=== PATIENT | female | born 1970 | race Caucasian/White ===

== ENCOUNTER → 2016-09-06 | Outpatient (CLI) | payer BC ==
[2016-09-06 08:59] LABS: Basophils # (A) 0.1 k/uL (0-0.2); Basophils % (A) 1 %; CH 30.2; CHCM 33.2; Eosinophils # (A) 0.2 k/uL (0-0.7); Eosinophils % (A) 2 %; HCT 40.9 % (34.0-46.0); HDW 2.29; HGB 13.8 gm/dL (11.4-16.0); Luc # (Auto) 0.12; Luc % (Auto) 2; Lymphocytes # (A) 1.4 k/uL (1.0-4.8); Lymphocytes % (A) 19 %; MCH 30.8 pg (25.0-35.0); MCHC 33.7 g/dL (31.0-37.0); MCV 91.4 fL (80.0-100.0); Mean Platelet Volume 7.2; Monocytes # (A) 0.4 k/uL (0-1.0); Monocytes % (A) 5 %; Neutrophils # (A) 5.5 k/uL (1.3-7.7); Neutrophils % (A) 72 %; RBC 4.48 m/uL (3.80-5.40); RDW 12.1 % (11.5-15.5); WBC 7.6 k/uL (3.8-10.6)
[2016-09-06 09:32] LABS: ALT 45 U/L (9-52); AST 34 U/L (14-36); Alkaline Phosphatase 53 U/L (38-126); Anion Gap 13 mmol/L; Blood Urea Nitrogen 10 mg/dL (7-17); Calcium 9.7 mg/dL (8.4-10.2); Carbon Dioxide 24 mmol/L (22-30); Chloride 105 mmol/L (98-107); Cholesterol 183 mg/dL (<200); Glucose 97 mg/dL (74-99); HDL Cholesterol 63 mg/dL (40-60); Non-African American GFR(MDRD) >60 (>60 ml/min/1.73 sqM); Potassium 4.8 mmol/L (3.5-5.1); Sodium 142 mmol/L (137-145); Total Bilirubin 0.6 mg/dL (0.2-1.3); Total Protein 7.6 g/dL (6.3-8.2); Triglycerides 91 mg/dL (<150)
== END | disposition home or self-care (01) ==
LOC: LABWHC1 08:36
PROVIDERS: ATTEND Family Medicine
DX: Z00.00 Encounter for general adult medical examination without abnormal findings (principal)
CPT/HCPCS: 36415; 80053; 80061; 85025

== ENCOUNTER → 2017-10-19 | Outpatient (CLI) | payer OTHER ==
[2017-10-19 10:24] LABS: Basophils # (A) 0.1 k/uL (0-0.2); Basophils % (A) 1 %; Eosinophils # (A) 0.1 k/uL (0-0.7); Eosinophils % (A) 1 %; HCT 38.2 % (34.0-46.0); HGB 12.6 gm/dL (11.4-16.0); Lymphocytes # (A) 1.7 k/uL (1.0-4.8); Lymphocytes % (A) 26 %; MCHC 32.9 g/dL (31.0-37.0); MCV 91.4 fL (80.0-100.0); Mean Platelet Volume 7.4; Monocytes # (A) 0.3 k/uL (0-1.0); Monocytes % (A) 4 %; Neutrophils # (A) 4.2 k/uL (1.3-7.7); Neutrophils % (A) 66 %; Platelet Count 290 k/uL (150-450); RBC 4.18 m/uL (3.80-5.40); RDW 12.3 % (11.5-15.5); WBC 6.4 k/uL (3.8-10.6)
[2017-10-19 11:25] LABS: ALT 34 U/L (9-52); AST 23 U/L (14-36); Alkaline Phosphatase 52 U/L (38-126); Anion Gap 13 mmol/L; Blood Urea Nitrogen 15 mg/dL (7-17); Calcium 9.3 mg/dL (8.4-10.2); Carbon Dioxide 26 mmol/L (22-30); Chloride 103 mmol/L (98-107); Cholesterol 146 mg/dL (<200); Glucose 95 mg/dL (74-99); HDL Cholesterol 56 mg/dL (40-60); LDL Cholesterol,Calculated 77 mg/dL (0-99); Potassium 4.2 mmol/L (3.5-5.1); Sodium 142 mmol/L (137-145); Total Bilirubin 0.3 mg/dL (0.2-1.3); Total Protein 6.7 g/dL (6.3-8.2); Triglycerides 63 mg/dL (<150)
--- NOTE | 2017-10-21 09:12 | MM ---
Reason for exam: screening (asymptomatic). Last mammogram was performed 1 year and 6 months ago. History: Patient history of other cancer. Family history of breast cancer in maternal aunt, breast cancer in paternal aunt at age 47, and breast cancer in maternal cousin. Physical Findings: A clinical breast exam by your physician is recommended on an annual basis and results should be correlated with mammographic findings. MG Screening Mammo w CAD Bilateral CC and MLO view(s) were taken. Prior study comparison: April 07, 2016, bilateral MG screening mammo w CAD. October 09, 2014, bilateral MG diagnostic mammo w CAD RICHELLE. There are scattered fibroglandular densities. No significant changes when compared with prior studies. ASSESSMENT: Negative, BI-RAD 1 RECOMMENDATION: Routine screening mammogram of both breasts in 1 year.
== END | disposition home or self-care (01) ==
LOC: RADMAMWWP 09:30
PROVIDERS: ATTEND Family Medicine
DX: Z12.31 Encounter for screening mammogram for malignant neoplasm of breast (principal); Z00.00 Encounter for general adult medical examination without abnormal findings
CPT/HCPCS: 36415; 77067; 80053; 80061; 82306; 84443; 85025

== ENCOUNTER → 2020-06-06 | Outpatient (CLI) | payer SELFPAY ==
--- NOTE | 2020-06-07 11:25 | MR ---
EXAMINATION TYPE: MR brain wo con DATE OF EXAM: 06/06/2020 COMPARISON: NONE at this institution. HISTORY: Head injury in spring 2019, dizziness and giddiness, history of lupus TECHNIQUE: Multiplanar, multisequence imaging of the brain and brainstem is performed without IV cont rast. Trauma protocol. FINDINGS: Diffusion weighted images demonstrate no evidence of a recent infarct or other diffusion abnormality. There is no worrisome extra-axial fluid collection. The ventricular system and cisternal spaces are normal in size and appearance. The brain volume is age appropriate. T2 Star weighted images show no suspicious intraparenchymal blood product. There are scattered areas of T2 hyperintensity including a lobulated 2.0 x 1.9 cm lesion in the posterior right frontal lobe at level of arreaga radiata axis im age 19. Lesions are nonspecific in appearance and distribution. There is another reference 1.2 x 1.1 cm lesion in the left temporal periventricular region axial image 12 noted. Roughly additional 5-10 s maller scattered lesions are present. Midline structures demonstrate normal morphology. The craniocervical junction appears within normal limits. Normal vascular flow voids are present. The visualized sinuses are clear and the globes are i ntact. No suspicious fluid signal bilateral mastoid air cells. 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
== END | disposition home or self-care (01) ==
LOC: RADMRIMAIN 16:18
PROVIDERS: ATTEND Family Medicine
DX: R90.82 White matter disease, unspecified (principal)
CPT/HCPCS: 70551

== ENCOUNTER → 2023-05-27 | Outpatient (CLI) | payer BC ==
--- NOTE | 2023-05-28 07:54 | CA ---
Transthoracic Echo Report Name: Dariela Montaño Age: 52 Gender: F : 1970 Exam Date: 05/27/2023 15:14 Exam Location: [place] [facility] Ht (in): 63 Wt (lb): 220 Ordering Physician: Chaparro Mccarty MD Attending/Referring Phys: Diandra Olea [facility] Diffusion Furnace Operator Niyah Rich RDCS Procedure CPT: Indications: R94.31 ABNORMAL EKG Cardiac Hx: Technical Quality: Fair Contrast 1: Total Dose (mL): Contrast 2: Total Dose (mL): MEASUREMENTS (Male / Female) Normal Values 2D ECHO LV Diastolic Diameter PLAX 3.6 cm 4.2 - 5.9 / 3.9 - 5.3 cm LV Systolic Diameter PLAX 2.4 cm IVS Diastolic Thickness 1.4 cm 0.6 - 1.0 / 0.6 - 0.9 cm LVPW Diastolic Thickness 1.3 cm 0.6 - 1.0 / 0.6 - 0.9 cm LV Relative Wall Thickness 0.8 RV Internal Dim ED PLAX 3.2 cm LA Volume 65.3 cm??? 18 - 58 / 22 - 52 cm??? LA Volume Index 30.3 cm???/m??? 16 - 28 cm???/m??? M-MODE Aortic Root Diameter MM 3.0 cm LA Systolic Diameter MM 4.7 cm LA Ao Ratio MM 1.6 AV Cusp Separation MM 2.0 cm DOPPLER AV Peak Velocity 136.9 cm/s AV Peak Gradient 7.5 mmHg AV Mean Velocity 94.8 cm/s AV Mean Gradient 4.0 mmHg AV Velocity Time Integral 31.4 cm LVOT Peak Velocity 87.7 cm/s LVOT Peak Gradient 3.1 mmHg LVOT Velocity Time Integral 22.2 cm MV Area PHT 3.1 cm??? MR Peak Velocity 143.3 cm/s MR Peak Gradient 8.2 mmHg Mitral E Point Velocity 73.8 cm/s Mitral A Point Velocity 69.4 cm/s Mitral E to A Ratio 1.1 MV Deceleration Time 242.6 ms MV E' Velocity 8.0 cm/s Mitral E to MV E' Ratio 9.2 TR Peak Velocity 227.1 cm/s TR Peak Gradient 20.6 mmHg Right Ventricular Systolic Press 25.6 mmHg FINDINGS Left Ventricle Moderately increased left ventricular wall thickness. Left ventricular cavity size normal. Normal left ventricular systolic function with no obvious regional wall motion abnormalities. Left ventricular ejection fraction is estimated at 55-60%. Right Ventricle Normal right ventricular size and function. Right ventricular systolic pressure within normal limits. Right Atrium Normal right atrial size. Left Atrium Mildly increased left atrial volume. Mitral Valve Structurally normal mitral valve. Mild mitral regurgitation. Aortic Valve Trileaflet aortic valve. No aortic valve stenosis or regurgitation. Tricuspid Valve Structurally normal tricuspid valve. Mild tricuspid regurgitation. Pulmonic Valve Trace pulmonic regurgitation. Pericardium No pericardial effusion. Aorta Normal size aortic root and proximal ascending aorta. CONCLUSIONS Normal LV size and systolic function. Mild mitral and tricuspid regurgitation. No significant pulmonary hypertension. No pericardial effusion Previewed by: Dr. Alicia Olivera MD (Electronically Signed) Final Date: 28 May 2023 07:53
== END | disposition home or self-care (01) ==
LOC: RADECHMAIN 15:03
PROVIDERS: ATTEND Family Medicine
DX: I08.1 Rheumatic disorders of both mitral and tricuspid valves (principal); R94.31 Abnormal electrocardiogram [ECG] [EKG]
CPT/HCPCS: 93306

== ENCOUNTER 2023-06-24 07:05 | Day surgery (SDC) | payer BC ==
[2023-06-23 08:34] VITALS: BMI 37.8
[2023-06-24] MEDS: LACTATED RINGERS 1,000 ML IV SCH ×2 (07:50→07:51)
[2023-06-24] MEDS ORDERED: LIDOCAINE 1% (10MG/ML) FOR IV START INTRADERMA ONE (07:51)
[2023-06-24] MEDS ORDERED: MIDAZOLAM 2 MG/2 ML VIAL ONE (07:52)
[2023-06-24] MEDS ORDERED: LIDOCAINE 1% INJ 10MG/ML (20 ML MDV) ONE (07:52)
[2023-06-24] MEDS ORDERED: PROPOFOL 10 MG/ML 20 ML VIAL IV ONE (07:52)
[2023-06-24 08:04] VITALS: TEMP 96.9
--- NOTE | 2023-06-24 08:15 | P.PCN ---
Date of Procedure: 06/24/23 Procedure(s) Performed: Brief history: Patient is a pleasant 50-year-old white female scheduled for an elective upper endoscopy as well as colonoscopy as a part of evaluation of intermittent episodes of nausea vomiting and GERD as well as screening for colon cancer Procedure performed: Esophagogastroduodenoscopy with biopsy Colonoscopy with biopsy and snare polypectomy Preoperative diagnosis: Epigastric pain/intermittent nausea vomiting/GERD Screening for colon cancer Anesthesia: MAC Procedure: After informed consent was obtained from the patient was brought into the endoscopy unit and IV sedation was administered by anesthesia under continuous monitoring. Initially upper endoscopy was done. The Olympus GF 160 video endoscope was inserted inserted into the mouth and esophagus intubated without any difficulty and was gradually advanced into the stomach and duodenum and carefully examined. The bulb and second part of the duodenum appeared normal. The scope was then withdrawn into the stomach adequately insufflated with air and upon careful examination the antrum had mild gastritis and biopsies were done from this area. Mucosa of the body, cardia and fundus appeared normal. The scope was then withdrawn into the esophagus. Small hiatal hernia noted. The GE junction was located at 40 cm to the incisors. It appeared regular with 2 superficial erosions consistent with LA grade B reflux esophagitis. There was a 5 mm GE junction polyp that was biopsied.. Rest of the esophagus appeared normal. Patient tolerated the procedure well. At this time the patient continued to remain sedation. Initial digital rectal examination was normal. Olympus CF 160 video colonoscope was then inserted into the rectum and gradually advanced to the cecum without any difficulty. Careful examination was performed as the scope was gradually being withdrawn. The prep was excellent. The cecum, ascending colon, appeared normal. In the transverse colon there was a 4 mm polyp that was removed by cold biopsy. Rest of the transverse colon, descending colon, normal. In the sigmoid colon there was a 6 minute a polyp that was removed by cold snare polypectomy. Rest of the sigmoid colon and rectum appeared normal. Retroflexion was performed in the rectum and no lesions were noted. Patient tolerated the procedure well. Impression: 1. Upper Endoscopy revealed mild antral gastritis, small hiatal hernia, 5 mm GE junction polyp and LA grade B reflux esophagitis 2. Colonoscopy revealed a 4 mm transverse colon polyp status post cold biopsy and 6 mm sigmoid polyp status post cold snare polypectomy Recommendations: Findings of this examination were discussed with the patient as well as her family. She was advised to follow with the biopsy results. Continue with Pepcid 20 mg twice daily and follow antrum reflux measures. If the biopsy of the colon polyps revealed adenoma, recommend repeat colonoscopy in 5 years.
[2023-06-24 08:55] VITALS: BP 127/74; PULSE 74; RESP 16
== END 2023-06-24 09:06 | disposition home or self-care (01) ==
LOC: ORWHC2ENDO 07:05
PROVIDERS: ATTEND Internal Medicine Gastroenterology
DX: Z12.11 Encounter for screening for malignant neoplasm of colon (principal); K29.80 Duodenitis without bleeding; K31.9 Disease of stomach and duodenum, unspecified; D12.3 Benign neoplasm of transverse colon; K29.50 Unspecified chronic gastritis without bleeding; K21.00 Gastro-esophageal reflux disease with esophagitis, without bleeding; K22.82 Esophagogastric junction polyp; K44.9 Diaphragmatic hernia without obstruction or gangrene; Z87.19 Personal history of other diseases of the digestive system
CPT/HCPCS: 88305; 45380; 45385; 43239; J2250; J2001; J2704

== ENCOUNTER → 2023-07-08 | Outpatient (CLI) | payer BC ==
[~2023-07-08] MED LIST: REGADENOSON 0.4 MG/5 ML SYRINGE IV ONE
--- NOTE | 2023-07-08 12:36 | CA ---
Lexiscan Nuclear Stress Test Report Name: Dariela Montaño Exam Date: 07/08/2023 09:30 Exam Location: [place] [facility] Ht (in): 66 Wt (lb): 222 BSA: 2.09 Ordering Phys: Chaparro Mccarty MD Referring Phys: KENTON,, Technologist: LYNNE,, Age: 52 Gender: F : 1970 Procedure CPT: Indications: R94.31 Abn EKG ICD-10 Codes: Patient History: Chest pain, shortness of breath and palpitations Medications: Meds past 24 hrs: Pretest Chest Pain: STRESS TEST Lexiscan Protocol Exercise Duration (min:sec): 02:[address] Depressions (mm): Angina Score: Guido Score: Resting HR (bpm): 57 Peak HR (bpm): 111 Resting BP (mmHg): 107 / 68 Peak BP (mmHg): 161 / 72 MPHR: 168 Target HR: 143 % MPHR: 66 METS: 1.0 Total Dose: Peak Dose: Atropine: Double Product: 87936 BP Response: Stress Termination: Infusion complete Stress Symptoms: Nausea Stress Summary: ECG ANALYSIS Resting ECG: Stress ECG: CONCLUSIONS At baseline EKG showed normal sinus rhythm, normal axis, no significant ST or T wave abnormalities. Patient recieved IV infusion of Lexiscan 0.4mg and at peak infusion EKG showed no significant change from baseline. Conclusions: 1. Normal EKG response to Lexiscan infusion 2. Nuclear imaging to be reported separately. Dr. Skyler Radford DO (Electronically Signed) Final Date: 08 July 2023 12:35
== END | disposition home or self-care (01) ==
LOC: RADNMMAIN 08:05
PROVIDERS: ATTEND Family Medicine
DX: R07.1 Chest pain on breathing (principal); R94.31 Abnormal electrocardiogram [ECG] [EKG]; R06.02 Shortness of breath
CPT/HCPCS: 93017; 78452; A9500; J2785

== ENCOUNTER 2023-08-04 07:43 | Emergency (ER) | payer BC ==
[2023-08-04] MEDS ORDERED: METOCLOPRAMIDE 5 MG/ML 2 ML VIAL IVP STA (08:03)
[2023-08-04] MEDS ORDERED: diphenhydrAMINE 50 MG/ML 1 ML VIAL IVP STA (08:03)
[2023-08-04] MEDS ORDERED: SODIUM CHLORIDE 0.9% 2,000 ML IV STA (08:03)
[2023-08-04] MEDS ORDERED: KETOROLAC 15 MG/ML 1 ML VIAL IVP STA (08:04)
[2023-08-04 08:15] VITALS: TEMP 98
--- NOTE | 2023-08-04 08:43 | ED ---
Recheck HPI - General Chief Complaint: Recheck/Abnormal Lab/Rx Stated Complaint: NV Time Seen by Provider: 08/04/23 08:00 Source: patient, RN notes reviewed Mode of arrival: EMS Limitations: no limitations - History of Present Illness Initial Comments: Is a 53-year-old female presents emergency department complaint of nausea vomiting chest discomfort. Patient states she has been vomiting throughout the night. She states she has pain in her chest, epigastric region. Patient denies any shortness of breath she does admit to marijuana use. Patient denies any localized abdominal discomfort other than her upper abdomen. Patient states she had no prior surgeries she had a recent stress test showing some abnormalities. Patient denies any dysuria hematuria - Related Data Home Medications Medication Instructions Recorded Confirmed FLUoxetine HCL [PROzac] 40 mg PO QAM 06/23/23 06/24/23 Famotidine 40 mg PO QAM 06/23/23 06/24/23 Meloxicam [Mobic] 15 mg PO QAM 06/23/23 06/24/23 Vit No.179/Iron/Folic 1 each PO QAM 06/23/23 06/24/23 [ Tablet] tiZANidine [Zanaflex] 4 mg PO HS 06/23/23 06/24/23 Previous Rx's Medication Instructions Recorded Omeprazole [PriLOSEC] 40 mg PO DAILY #14 cap 08/04/23 Ondansetron Odt [Zofran Odt] 4 mg PO Q8HR PRN #10 tab 08/04/23 Allergies Allergy/AdvReac Type Severity Reaction Status Date / Time No Known Allergies Allergy Verified 08/04/23 07:55 Review of Systems ROS Statement: Those systems with pertinent positive or pertinent negative responses have been documented in the HPI. ROS Other: All systems not noted in ROS Statement are negative. Past Medical History Past Medical History: No Reported History Additional Past Medical History / Comment(s): Recent frequent vomiting, currently not as much. Lupus. History of Any Multi-Drug Resistant Organisms: None Reported Past Surgical History: Section, Orthopedic Surgery Additional Past Surgical History / Comment(s): Left knee surgery, laproscopy. Past Anesthesia/Blood Transfusion Reactions: No Reported Reaction Past Psychological History: Anxiety, Depression Smoking Status: Former smoker Past Alcohol Use History: None Reported Past Drug Use History: Marijuana - Past Family History Mother Family Medical History: Blood Disorder, Deep Vein Thrombosis (DVT) Additional Family Medical History / Comment(s): Factor 5. Sister(s) Family Medical History: Cancer, Deep Vein Thrombosis (DVT) Additional Family Medical History / Comment(s): 2 sister's had DVT's, 1 sister had throat cancer. Brother(s) Family Medical History: Deep Vein Thrombosis (DVT) Daughter(s) Family Medical History: Deep Vein Thrombosis (DVT), Pulmonary Embolus Additional Family Medical History / Comment(s): DVT and PE from control pill. General Exam Limitations: no limitations General appearance: alert, in no apparent distress Head exam: Present: atraumatic, normocephalic, normal inspection Eye exam: Present: normal appearance, PERRL, EOMI. Absent: scleral icterus, conjunctival injection, periorbital swelling ENT exam: Present: normal exam, normal oropharynx, mucous membranes moist Neck exam: Present: normal inspection, full ROM. Absent: tenderness, meningismus, lymphadenopathy Respiratory exam: Present: normal lung sounds bilaterally. Absent: respiratory distress, wheezes, rales, rhonchi, stridor Cardiovascular Exam: Present: regular rate, normal rhythm, normal heart sounds. Absent: systolic murmur, diastolic murmur, rubs, gallop, clicks GI/Abdominal exam: Present: soft, normal bowel sounds. Absent: distended, tenderness, guarding, rebound, rigid Neurological exam: Present: alert, reflexes normal. Absent: motor sensory deficit Skin exam: Present: warm, dry, intact, normal color. Absent: rash Course Vital Signs 08/04/23 08/04/23 07:52 11:32 Temperature 98 F Pulse Rate 68 86 Respiratory 18 20 Rate Blood Pressure 147/80 140/80 O2 Sat by Pulse 98 98 Oximetry Medical Decision Making - Medical Decision Making Was pt. sent in by a medical professional or institution (, PA, [facility], urgent care, hospital, or retirement...) When possible be specific @ -No Did you speak to anyone other than the patient for history (EMS, parent, family, police, friend...)? What history was obtained from this source @ -No Did you review nursing and triage notes (agree or disagree)? Why? @ -I reviewed and agree with nursing and triage notes Were old charts reviewed (outside hosp., previous admission, EMS record, old EKG, old radiological studies, urgent care reports/EKG's, retirement records)? Report findings @ -Reviewed recent stress test, upper and lower GI Differential Diagnosis (chest pain, altered mental status, abdominal pain women, abdominal pain men, vaginal bleeding, weakness, fever, dyspnea, syncope, headache, dizziness, GI bleed, back pain, seizure, CVA, palpatations, mental health, musculoskeletal)? @ -Differential Abdominal Pain Women: Appendicitis, Cholecystitis, diverticulosis, ischemic bowel, pancreatitis, hepatitis, UTI, gastroenteritis, AAA, incarcerated hernia, bowel obstruction, constipation, inflammatory bowel, hepatitis, peptic ulcer disease, splenic infarction, perforated viscus, vulvitis, ovarian torsion, PID, kidney stone, placenta abruption, this is not meant to be an all-inclusive list EKG interpreted by me (3pts min.). @ -[As above X-rays interpreted by me (1pt min.). @ -Chest x-ray 2 view no acute cardiopulmonary process CT interpreted by me (1pt min.). @ -None done U/S interpreted by me (1pt. min.). @ -None done What testing was considered but not performed or refused? (CT, X-rays, U/S, labs)? Why? @ -None What meds were considered but not given or refused? Why? @ -None Did you discuss the management of the patient with other professionals (professionals i.e. , PA, [facility], lab, RT, psych nurse, child protective services social worker, husbandry person, teacher, port patrol officer, returned case inspector)? Give summary @ -No Was smoking cessation discussed for >3mins.? @ -No Was critical care preformed (if so, how long)? @ -No Were there social determinants of health that impacted care today? How? (Homelessness, low income, unemployed, alcoholism, drug addiction, transportation, low edu. Level, literacy, decrease access to med. care, nursing home, rehab)? @ -No Was there de-escalation of care discussed even if they declined (Discuss DNR or withdrawal of care, Hospice)? DNR status @ -No What co-morbidities impacted this encounter? (DM, HTN, Smoking, COPD, CAD, Cancer, CVA, ARF, Chemo, Hep., AIDS, mental health diagnosis, sleep apnea, morbid obesity)? @ -Marijuana use Was patient admitted / discharged? Hospital course, mention meds given and route, prescriptions, significant lab abnormalities, going to OR and other pertinent info. @ -Discharged patient felt reasonably better IV fluids and antiemetics patient had recent GI evaluation she was placed on Pepcid. Patient continues to use marijuana. She has no chest pain currently laboratory studies reveal mild lactic acidosis related to her vomiting she feels comfortable with discharge and close follow-up. Undiagnosed new problem with uncertain prognosis? @ -No Drug Therapy requiring intensive monitoring for toxicity (Heparin, Nitro, Insulin, Cardizem)? @ -No Were any procedures done? @ -No Diagnosis/symptom? @ -Nausea vomiting, dehydration Acute, or Chronic, or Acute on Chronic? @ -[Acute Uncomplicated (without systemic symptoms) or Complicated (systemic symptoms)? @ -Complicated Side effects of treatment? @ -No Exacerbation, Progression, or Severe Exacerbation? @ -No Poses a threat to life or bodily function? How? (Chest pain, USA, IA, pneumonia, PE, COPD, DKA, ARF, appy, cholecystitis, CVA, Diverticulitis, Homicidal, Suicidal, threat to staff... and all critical care pts) @ -No - Lab Data Result diagrams: 08/04/23 08:27 08/04/23 08:27 Lab Results 08/04/23 08/04/23 08/04/23 Range/Units 08:27 08:27 08:27 WBC 11.0 H (3.8-10.6) k/uL RBC 4.81 (3.80-5.40) m/uL Hgb 14.7 (11.4-16.0) gm/dL Hct 43.8 (34.0-46.0) % MCV 91.0 (80.0-100.0) fL MCH 30.5 (25.0-35.0) pg MCHC 33.5 (31.0-37.0) g/dL RDW 12.4 (11.5-15.5) % Plt Count 308 (150-450) k/uL MPV 7.8 Neutrophils % 80 % Lymphocytes % 14 % Monocytes % 4 % Eosinophils % 1 % Basophils % 0 % Neutrophils # 8.8 H (1.3-7.7) k/uL Lymphocytes # 1.6 (1.0-4.8) k/uL Monocytes # 0.4 (0-1.0) k/uL Eosinophils # 0.1 (0-0.7) k/uL Basophils # 0.1 (0-0.2) k/uL Sodium 139 (137-145) mmol/L Potassium 3.7 (3.5-5.1) mmol/L Chloride 108 H (98-107) mmol/L Carbon Dioxide 19 L (22-30) mmol/L Anion Gap 12 mmol/L BUN 13 (7-17) mg/dL Creatinine 0.65 (0.52-1.04) mg/dL Est GFR (CKD-EPI)AfAm >90 (>60 ml/min/1.73 sqM) Est GFR (CKD-EPI)NonAf >90 (>60 ml/min/1.73 sqM) Glucose 167 H (74-99) mg/dL Lactic Ac Sepsis Rflx Plasma Lactic Acid Martin (0.7-2.0) mmol/L Calcium 10.1 (8.4-10.2) mg/dL Total Bilirubin 0.6 (0.2-1.3) mg/dL AST 36 (14-36) U/L ALT 33 (4-34) U/L Alkaline Phosphatase 85 (38-126) U/L Troponin I (0.000-0.034) ng/mL Total Protein 7.7 (6.3-8.2) g/dL Albumin 4.8 (3.5-5.0) g/dL Lipase 140 (23-300) U/L Urine Color Light Yellow Urine Appearance Cloudy H (Clear) Urine pH 8.5 H (5.0-8.0) Ur Specific [place] 1.014 (1.001-1.035) Urine Protein Trace H (Negative) Urine Glucose (UA) Negative (Negative) Urine Ketones Negative (Negative) Urine Blood Negative (Negative) Urine Nitrite Negative (Negative) Urine Bilirubin Negative (Negative) Urine Urobilinogen <2.0 (<2.0) mg/dL Ur Leukocyte Esterase Negative (Negative) Urine RBC 1 (0-5) /hpf Urine WBC 1 (0-5) /hpf Ur Squamous Epith Cells <1 (0-4) /hpf Amorphous Sediment Rare H (None) /hpf Urine Mucus Rare H (None) /hpf 08/04/23 08/04/23 08/04/23 Range/Units 08:27 08:27 09:15 WBC (3.8-10.6) k/uL RBC (3.80-5.40) m/uL Hgb (11.4-16.0) gm/dL Hct (34.0-46.0) % MCV (80.0-100.0) fL MCH (25.0-35.0) pg MCHC (31.0-37.0) g/dL RDW (11.5-15.5) % Plt Count (150-450) k/uL MPV Neutrophils % % Lymphocytes % % Monocytes % % Eosinophils % % Basophils % % Neutrophils # (1.3-7.7) k/uL Lymphocytes # (1.0-4.8) k/uL Monocytes # (0-1.0) k/uL Eosinophils # (0-0.7) k/uL Basophils # (0-0.2) k/uL Sodium (137-145) mmol/L Potassium (3.5-5.1) mmol/L Chloride (98-107) mmol/L Carbon Dioxide (22-30) mmol/L Anion Gap mmol/L BUN (7-17) mg/dL Creatinine (0.52-1.04) mg/dL Est GFR (CKD-EPI)AfAm (>60 ml/min/1.73 sqM) Est GFR (CKD-EPI)NonAf (>60 ml/min/1.73 sqM) Glucose (74-99) mg/dL Lactic Ac Sepsis Rflx Y Plasma Lactic Acid Martin 4.6 H* (0.7-2.0) mmol/L Calcium (8.4-10.2) mg/dL Total Bilirubin (0.2-1.3) mg/dL AST (14-36) U/L ALT (4-34) U/L Alkaline Phosphatase (38-126) U/L Troponin I <0.012 (0.000-0.034) ng/mL Total Protein (6.3-8.2) g/dL Albumin (3.5-5.0) g/dL Lipase (23-300) U/L Urine Color Urine Appearance (Clear) Urine pH (5.0-8.0) Ur Specific [place] (1.001-1.035) Urine Protein (Negative) Urine Glucose (UA) (Negative) Urine Ketones (Negative) Urine Blood (Negative) Urine Nitrite (Negative) Urine Bilirubin (Negative) Urine Urobilinogen (<2.0) mg/dL Ur Leukocyte Esterase (Negative) Urine RBC (0-5) /hpf Urine WBC (0-5) /hpf Ur Squamous Epith Cells (0-4) /hpf Amorphous Sediment (None) /hpf Urine Mucus (None) /hpf Disposition Clinical Impression: Nausea & vomiting, Dehydration Disposition: HOME SELF-CARE Condition: Stable Instructions (If sedation given, give patient instructions): Acute Nausea and Vomiting (ED) Additional Instructions: Please return to the Emergency Department if symptoms worsen or any other concerns. Prescriptions: Omeprazole [PriLOSEC] 40 mg PO DAILY #14 cap Ondansetron Odt [Zofran Odt] 4 mg PO Q8HR PRN #10 tab PRN Reason: Nausea Is patient prescribed a controlled substance at d/c from ED?: No Referrals: Chaparro Mccarty MD [Primary Care Provider] - 1-2 days Time of Disposition: 11:01
[2023-08-04 08:53] LABS: ALT 33 U/L (4-34); AST 36 U/L (14-36); African American GFR (CKD) >90 (>60 ml/min/1.73 sqM); Albumin 4.8 g/dL (3.5-5.0); Alkaline Phosphatase 85 U/L (38-126); Anion Gap 12 mmol/L; Blood Urea Nitrogen 13 mg/dL (7-17); Calcium 10.1 mg/dL (8.4-10.2); Carbon Dioxide 19 mmol/L (22-30); Chloride 108 mmol/L (98-107); Glucose 167 mg/dL (74-99); Lipase 140 U/L (23-300); Non-African American GFR(CKD) >90 (>60 ml/min/1.73 sqM); Potassium 3.7 mmol/L (3.5-5.1); Sodium 139 mmol/L (137-145); Total Bilirubin 0.6 mg/dL (0.2-1.3); Total Protein 7.7 g/dL (6.3-8.2)
[2023-08-04 08:54] LABS: Basophils # (A) 0.1 k/uL (0-0.2); Basophils % (A) 0 %; Eosinophils # (A) 0.1 k/uL (0-0.7); Eosinophils % (A) 1 %; HCT 43.8 % (34.0-46.0); HGB 14.7 gm/dL (11.4-16.0); Lymphocytes # (A) 1.6 k/uL (1.0-4.8); Lymphocytes % (A) 14 %; MCH 30.5 pg (25.0-35.0); MCHC 33.5 g/dL (31.0-37.0); Mean Platelet Volume 7.8; Monocytes # (A) 0.4 k/uL (0-1.0); Monocytes % (A) 4 %; Neutrophils # (A) 8.8 k/uL (1.3-7.7); Neutrophils % (A) 80 %; Platelet Count 308 k/uL (150-450); RBC 4.81 m/uL (3.80-5.40); RDW 12.4 % (11.5-15.5)
--- NOTE | 2023-08-04 08:54 | XR ---
EXAMINATION TYPE: XR chest 2V DATE OF EXAM: 08/04/2023 COMPARISON: None INDICATION: Pain and nausea and vomiting chest discomfort TECHNIQUE: Frontal and lateral views of the chest are obtained. FINDINGS: The heart size is normal. The pulmonary vasculature is normal. The lungs are clear. IMPRESSION: 1. No acute pulmonary process.
[2023-08-04] MEDS ORDERED: PANTOPRAZOLE 40 MG/10 ML VIAL IVP STA (09:01)
[2023-08-04] MEDS ORDERED: droPERidol 5 MG/2 ML VIAL IVP ONE ×2 (09:02→11:15)
[2023-08-04 10:50] LABS: Amorphous Sediment,Urine Rare /hpf; Appearance,Urine Cloudy (Clear); Bilirubin,Urine Negative (Negative); Blood,Urine Negative (Negative); Color,Urine Light Yellow; Glucose,Urine (UA) Negative (Negative); Ketones,Urine Negative (Negative); Leukocyte Esterase,Urine Negative (Negative); Mucus,Urine Rare /hpf; Nitrite,Urine Negative (Negative); PH, Urine 8.5 (5.0-8.0); Protein,Urine Trace (Negative); RBC,Urine 1 /hpf (0-5); Specific Gravity,Urine 1.014 (1.001-1.035); Squamous Epithelial Cell,Urine <1 /hpf (0-4); Urobilinogen,Urine <2.0 mg/dL (<2.0); WBC,Urine 1 /hpf (0-5)
[2023-08-04] MEDS ORDERED: FAMOTIDINE 20 MG/2 ML VIAL IV STA (11:15)
[2023-08-04 11:40] VITALS: BP 140/80; PULSE 86; RESP 20
== END 2023-08-04 11:36 | disposition home or self-care (01) ==
LOC: EC 07:43
DX: R11.2 Nausea with vomiting, unspecified (principal); E86.0 Dehydration; E87.20 Acidosis, unspecified; R00.1 Bradycardia, unspecified; F32.A Depression, unspecified; F41.9 Anxiety disorder, unspecified; F12.90 Cannabis use, unspecified, uncomplicated; Z79.899 Other long term (current) drug therapy; Z87.891 Personal history of nicotine dependence
CPT/HCPCS: 36415; 93005; 80053; 83605; 83690; 84484; 85025; 81001; 71046; 99285; 96374; 96375 ×5; 96376; 96361 ×2; J1200; J2765; J3490; J1885; C9113; J1790

== ENCOUNTER 2023-08-06 11:42 | Inpatient (IN) | payer BC ==
[2023-08-06] MEDS ORDERED: LORazepam 2 MG/ML INJ IV STA (12:10)
[2023-08-06] MEDS ORDERED: SODIUM CHLORIDE 0.9% 2,000 ML IV ONE (12:10)
[2023-08-06] MEDS ORDERED: droPERidol 5 MG/2 ML VIAL IVP ONE (12:10)
[2023-08-06] MEDS ORDERED: SODIUM CHLORIDE 0.9% 1,000 ML IV SCH (12:15)
[2023-08-06 12:41] LABS: Basophils % (A) 0 %; Eosinophils # (A) 0.1 k/uL (0-0.7); Eosinophils % (A) 1 %; HCT 42.8 % (34.0-46.0); HGB 14.6 gm/dL (11.4-16.0); Lymphocytes # (A) 1.9 k/uL (1.0-4.8); Lymphocytes % (A) 15 %; MCH 30.2 pg (25.0-35.0); MCHC 34.1 g/dL (31.0-37.0); MCV 88.6 fL (80.0-100.0); Monocytes # (A) 0.6 k/uL (0-1.0); Monocytes % (A) 5 %; Neutrophils # (A) 10.2 k/uL (1.3-7.7); Neutrophils % (A) 79 %; Platelet Count 308 k/uL (150-450); RBC 4.83 m/uL (3.80-5.40); RDW 12.6 % (11.5-15.5); WBC 12.9 k/uL (3.8-10.6)
[2023-08-06 12:44] LABS: INR 0.9 (<1.2); Partial Thromboplastin Time 22.5 sec (22.0-30.0); Prothrombin Time 10.4 sec (10.0-12.5)
--- NOTE | 2023-08-06 12:44 | XR ---
EXAMINATION TYPE: XR chest 2V DATE OF EXAM: 08/06/2023 12:39 PM CLINICAL INDICATION:Female, 52 years old with history of Chest Pain; [facility] COMPARISON: Chest radiographs from 08/04/2023 TECHNIQUE: XR chest 2V Frontal and lateral views of the chest. FINDINGS: Lungs/Pleura: There is no evidence of pleural effusion, focal consolidation, or pneumothorax. Pulmonary vascularity: Unremarkable. Heart/mediastinum: Cardiomediastinal silhouette is unremarkable. Musculoskeletal: No acute osseous pathology. IMPRESSION: No acute cardiopulmonary disease/process.
[2023-08-06] MEDS ORDERED: MORPHINE SULFATE 4 MG/ML SYRINGE IVP STA (12:47)
[2023-08-06] MEDS ORDERED: METOCLOPRAMIDE 5 MG/ML 2 ML VIAL IVP STA (12:47)
[2023-08-06 12:50] LABS: ALT 48 U/L (4-34); African American GFR (CKD) >90 (>60 ml/min/1.73 sqM); Albumin 5.1 g/dL (3.5-5.0); Anion Gap 13 mmol/L; Blood Urea Nitrogen 12 mg/dL (7-17); Calcium 10.3 mg/dL (8.4-10.2); Carbon Dioxide 22 mmol/L (22-30); Chloride 101 mmol/L (98-107); Glucose 112 mg/dL (74-99); Non-African American GFR(CKD) >90 (>60 ml/min/1.73 sqM); Sodium 136 mmol/L (137-145); Total Bilirubin 1.1 mg/dL (0.2-1.3)
[2023-08-06 12:59] LABS: NT-Pro-B-Type Natriuretic Pept 1500 pg/mL
[2023-08-06] MEDS: ASPIRIN 81 MG PO STA (13:08)
[2023-08-06 13:13] LABS: AST 57 U/L (14-36); Alkaline Phosphatase 70 U/L (38-126); Magnesium 1.5 mg/dL (1.6-2.3); Potassium 4.3 mmol/L (3.5-5.1); Total Protein 8.5 g/dL (6.3-8.2)
--- NOTE | 2023-08-06 13:23 | ED ---
Chest Pain HPI - General Chief Complaint: Chest Pain Stated Complaint: Abn EKG, sent by Cardio Time Seen by Provider: 08/06/23 11:52 Source: patient, RN notes reviewed Mode of arrival: ambulatory Limitations: no limitations - History of Present Illness Initial Comments: 52-year-old female presents emergency department with chief complaint of abdominal, chest pain. Patient states she was seen here few days ago for similar complaints. Patient states that she continues to have nausea and vomiting. 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 She states this is not different than what she has been exhibiting. She denies any fevers or chills no back pain no shortness of breath. - Related Data Home Medications Medication Instructions Recorded Confirmed FLUoxetine HCL [PROzac] 40 mg PO DAILY 06/23/23 08/06/23 Famotidine 40 mg PO DAILY 06/23/23 08/06/23 Meloxicam [Mobic] 15 mg PO DAILY 06/23/23 08/06/23 Vit No.179/Iron/Folic 1 tab PO DAILY 06/23/23 08/06/23 [ Tablet] tiZANidine [Zanaflex] 4 mg PO HS PRN 06/23/23 08/06/23 ALPRAZolam [Xanax] 0.5 mg PO DAILY PRN 08/06/23 08/06/23 Allergies Allergy/AdvReac Type Severity Reaction Status Date / Time No Known Allergies Allergy Verified 08/06/23 13:51 Review of Systems ROS Statement: Those systems with pertinent positive or pertinent negative responses have been documented in the HPI. ROS Other: All systems not noted in ROS Statement are negative. EKG Findings - EKG Comments: EKG Findings:: EKG performed at 12: 02 sinus rhythm with short ND rate of 61 ND 117 QRS 82 QT/QTc 427/431 - EKG Results: EKG: interpreted by DARELL Past Medical History Past Medical History: No Reported History Additional Past Medical History / Comment(s): Recent frequent vomiting, currently not as much. Lupus. History of Any Multi-Drug Resistant Organisms: None Reported Past Surgical History: Section, Orthopedic Surgery Additional Past Surgical History / Comment(s): Left knee surgery, laproscopy. Past Anesthesia/Blood Transfusion Reactions: No Reported Reaction Past Psychological History: Anxiety, Depression Smoking Status: Former smoker Past Alcohol Use History: None Reported Past Drug Use History: Marijuana - Past Family History Mother Family Medical History: Blood Disorder, Deep Vein Thrombosis (DVT) Additional Family Medical History / Comment(s): Factor 5. Sister(s) Family Medical History: Cancer, Deep Vein Thrombosis (DVT) Additional Family Medical History / Comment(s): 2 sister's had DVT's, 1 sister had throat cancer. Brother(s) Family Medical History: Deep Vein Thrombosis (DVT) Daughter(s) Family Medical History: Deep Vein Thrombosis (DVT), Pulmonary Embolus Additional Family Medical History / Comment(s): DVT and PE from control pill. General Exam Limitations: no limitations General appearance: alert, in no apparent distress Head exam: Present: atraumatic, normocephalic, normal inspection Eye exam: Present: normal appearance, PERRL, EOMI. Absent: scleral icterus, conjunctival injection, periorbital swelling ENT exam: Present: normal exam, normal oropharynx, mucous membranes moist Neck exam: Present: normal inspection, full ROM. Absent: tenderness, meningismus, lymphadenopathy Respiratory exam: Present: normal lung sounds bilaterally, chest wall tenderness. Absent: respiratory distress, wheezes, rales, rhonchi, stridor Cardiovascular Exam: Present: regular rate, normal rhythm, normal heart sounds. Absent: systolic murmur, diastolic murmur, rubs, gallop, clicks GI/Abdominal exam: Present: soft, tenderness, normal bowel sounds. Absent: distended, guarding, rebound, rigid Course Vital Signs 08/06/23 08/06/23 11:52 15:00 Temperature 98.2 F Pulse Rate 72 64 Respiratory 16 16 Rate Blood Pressure 155/84 161/85 O2 Sat by Pulse 100 95 Oximetry Chest Pain MDM - MDM Was pt. sent in by a medical professional or institution (, PA, ENVIRONMENTAL TECHNOLOGY PROFESSOR, urgent care, hospital, or assisted...) When possible be specific @ -[Allergy Did you speak to anyone other than the patient for history (EMS, parent, family, police, friend...)? What history was obtained from this source @ -No Did you review nursing and triage notes (agree or disagree)? Why? @ -I reviewed and agree with nursing and triage notes Were old charts reviewed (outside hosp., previous admission, EMS record, old EKG, old radiological studies, urgent care reports/EKG's, assisted records)? Report findings @ -[Recent laboratory studies, EKG, chest x-ray and stress test Differential Diagnosis (chest pain, altered mental status, abdominal pain women, abdominal pain men, vaginal bleeding, weakness, fever, dyspnea, syncope, headache, dizziness, GI bleed, back pain, seizure, CVA, palpatations, mental health, musculoskeletal)? @ -Differential Chest Pain: Stable Angina, Unstable Angina, STEMI, NSTEMI Aortic Dissection, Pneumothorax, Musculoskeletal, Esophageal Spasm GERD, Cholecystitis, Pancreatitis, Zoster, this is not meant to be an all-inclusive list. EKG interpreted by me (3pts min.). @ -As above X-rays interpreted by me (1pt min.). @ -Chest x-ray shows no acute cardiopulmonary process CT interpreted by me (1pt min.). @ -None done U/S interpreted by me (1pt. min.). @ -None done What testing was considered but not performed or refused? (CT, X-rays, U/S, labs)? Why? @ -None What meds were considered but not given or refused? Why? @ -None Did you discuss the management of the patient with other professionals (professionals i.e. , PA, ENVIRONMENTAL TECHNOLOGY PROFESSOR, lab, RT, psych nurse, social media content specialist, bus girl, teacher, environmental health officer, case management coordinator)? Give summary @ -[facility] physician for admission secondary to abnormal stress test and sent in by cardiology Was smoking cessation discussed for >3mins.? @ -No Was critical care preformed (if so, how long)? @ -No Were there social determinants of health that impacted care today? How? (Homelessness, low income, unemployed, alcoholism, drug addiction, transportation, low edu. Level, literacy, decrease access to med. care, alf, rehab)? @ -No Was there de-escalation of care discussed even if they declined (Discuss DNR or withdrawal of care, Hospice)? DNR status @ -No What co-morbidities impacted this encounter? (DM, HTN, Smoking, COPD, CAD, Cancer, CVA, ARF, Chemo, Hep., AIDS, mental health diagnosis, sleep apnea, morbid obesity)? @ -None Was patient admitted / discharged? Hospital course, mention meds given and route, prescriptions, significant lab abnormalities, going to OR and other pertinent info. @ -[For cardiac rule out, heart cath as she has had abnormal stress test. Undiagnosed new problem with uncertain prognosis? @ -No Drug Therapy requiring intensive monitoring for toxicity (Heparin, Nitro, Insulin, Cardizem)? @ -No Were any procedures done? @ -No Diagnosis/symptom? @ -[Chest pain Acute, or Chronic, or Acute on Chronic? @ -Acute Uncomplicated (without systemic symptoms) or Complicated (systemic symptoms)? @ -[Uncomplicated Side effects of treatment? @ -[No Exacerbation, Progression, or Severe Exacerbation? @ -No Poses a threat to life or bodily function? How? (Chest pain, [place], [place], pneumonia, PE, COPD, DKA, ARF, appy, cholecystitis, CVA, Diverticulitis, Homicidal, Suicidal, threat to staff... and all critical care pts) @ -[Yes possible ACS Disposition Clinical Impression: Nausea & vomiting, Chest pain Disposition: ADMITTED IP TO THIS HOSP Condition: Fair Time of Disposition: 13:17
[2023-08-06] MEDS ORDERED: NITROGLYCERIN SL TABS 0.4 MG TAB SUBLINGUAL PRN ×2 (13:38→23:45)
--- NOTE | 2023-08-06 14:43 | P.HPIM ---
History of Present Illness H&P Date: 08/06/23 History of Presenting Illness: Patient is a very pleasant 52-year-old female with a past medical history of lupus, gastroparesis with cyclic vomiting, anxiety, depression, and daily cannabinoid use. She presented to the emergency department with a chief complaint of intractable abdominal and chest pain accompanied by persistent nausea and vomiting x 3 days. 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 Patient denied having any fevers, chills, dizziness, lightheadedness, palpitations, shortness of breath, cough or congestion, or experiencing any changes with her urinary function or bowel movements. She does admit to daily marijuana use and states that is not the cause of her cyclic vomiting because she has used it every day for years. She underwent full evaluation in the emergency department. Vital signs upon arrival show blood pressure 155/84, heart rate 72, respiratory rate 16, temp 98.2 F, SpO2 100% on room air. Patient was medicated with morphine, Reglan, Ativan, and droperidol and given an IV fluid bolus of 2 L 0.9% normal saline. Her labs were completed. CBC revealing leukocytosis with WBC count of 12.9. Coagulation profile normal findings. BMP unremarkable. Blood glucose was 112. Calcium elevated at 10.3 and magnesium is low at 1.5. Liver profile showing elevated AST of 57 and ALT of 48. Troponin was negative at less than 0.012. EKG was completed showing normal sinus rhythm at 61 bpm. Chest x-ray was negative for acute cardiopulmonary process. Patient was admitted under our services with consultation to cardiology. Review of systems: Pertinent positives and negatives as discussed in HPI, a complete review of s ystems was performed and all other systems are negative. Physical exam: Vital signs reviewed and stable. General: Nontoxic, no distress and appears stated age. Derm: Skin warm and dry, normal coloration for ethnicity. Head: Atraumatic, normocephalic and symmetric. Eyes: EOMs intact, no lid lag, and anicteric sclera Mouth: no lip lesions, mucus membranes moist Cardiovascular: regular rate and rhythm with normal S1S2, no murmur, positive posterior tibial pulses bilaterally, and cap refill < 2 seconds. Lungs: Respirations even, regular, and unlabored on room air. Lungs CTA bilaterally, no rhonchi, no rales, no wheezing, and no accessory muscle usage. Abdominal: soft, nontender to palpation, no guarding, no appreciable organomegaly Ext: ROM intact. No gross muscle atrophy, no edema, no contractures Neuro: Speech clear, face symmetrical and CN II-XII grossly intact with no noted focal neuro deficits Psych: Alert and oriented to person, place, time, and situation. Appropriate and pleasant affect. Assessment and Plan of Care: Chest pain with abnormal Lexiscan stress test on 07/08/2023, rule out acute coronary event -Cardiology consulted, appreciate recommendations -Telemetry monitoring -Trend troponins -Cardiac diet, NPO at midnight -Aspirin 81 mg daily -Lipid profile with a.m. labs. -Echocardiogram Intractable abdominal pain, nausea, and vomiting Cyclic vomiting is believed to be secondary to cannabinoid hyperemesis syndrome Hypomagnesemia, secondary to above Leukocytosis, believed to be reactive secondary to above Elevated liver enzymes, possibly secondary to above -Symptomatic care and pain management. -Compazine 10 mg IVP every 6 hours as needed for nausea/vomiting -IV fluid hydration with lactated Ringer's at 100 cc/h. -Patient educated on the importance of cessation of any and all marijuana use. -Order was placed for magnesium sulfate 3 g IVPB. -Will repeat CBC, CMP, and magnesium levels tomorrow morning to follow-up on results and monitor for resolution of leukocytosis, hypomagnesemia, and elevated liver enzymes. Anxiety and depression -Continue daily medication regimen with Xanax 0.5 mg daily as needed for anxiety and fluoxetine 40 mg daily Data and imaging reviewed: As stated above in HPI The patient is admitted with an anticipated greater than 2 midnight stay for evaluation of chest pain and intractable abdominal pain, nausea, and vomiting CODE STATUS: Full code DVT prophylaxis: Heparin Anticipated discharge date: Clinical course to determine Anticipated discharge place: Clinical course to determine Patient was seen independently by Nurse Practitioner. This document was prepared using [employer] dictation software. Please allow for errors in wine and spirits clerk while rare they do occur. Percy Terrell SOFTWARE QUALITY ASSURANCE ANALYST rendered care for this patient independently, reviewed the findings and plan as documented in the note above. I did not physically speak with or examine the patient on this date. Past Medical History Past Medical History: No Reported History Additional Past Medical History / Comment(s): Recent frequent vomiting, currently not as much. Lupus. History of Any Multi-Drug Resistant Organisms: None Reported Past Surgical History: Section, Orthopedic Surgery Additional Past Surgical History / Comment(s): Left knee surgery, laproscopy. Past Anesthesia/Blood Transfusion Reactions: No Reported Reaction Past Psychological History: Anxiety, Depression Smoking Status: Former smoker Past Alcohol Use History: None Reported Past Drug Use History: Marijuana - Past Family History Mother Family Medical History: Blood Disorder, Deep Vein Thrombosis (DVT) Additional Family Medical History / Comment(s): Factor 5. Sister(s) Family Medical History: Cancer, Deep Vein Thrombosis (DVT) Additional Family Medical History / Comment(s): 2 sister's had DVT's, 1 sister had throat cancer. Brother(s) Family Medical History: Deep Vein Thrombosis (DVT) Daughter(s) Family Medical History: Deep Vein Thrombosis (DVT), Pulmonary Embolus Additional Family Medical History / Comment(s): DVT and PE from control pill. Medications and Allergies Home Medications Medication Instructions Recorded Confirmed Type FLUoxetine HCL [PROzac] 40 mg PO DAILY 06/23/23 08/06/23 History Famotidine 40 mg PO DAILY 06/23/23 08/06/23 History Meloxicam [Mobic] 15 mg PO DAILY 06/23/23 08/06/23 History Vit No.179/Iron/Folic 1 tab PO DAILY 06/23/23 08/06/23 History [ Tablet] tiZANidine [Zanaflex] 4 mg PO HS PRN 06/23/23 08/06/23 History ALPRAZolam [Xanax] 0.5 mg PO DAILY PRN 08/06/23 08/06/23 History Prochlorperazine [Compazine] 10 mg PO Q6H PRN #30 tab 08/07/23 Rx Allergies Allergy/AdvReac Type Severity Reaction Status Date / Time No Known Allergies Allergy Verified 08/06/23 13:51 Physical Exam Vitals: Vital Signs Temp Pulse Resp BP Pulse Ox 08/06/23 11:52 98.2 F 72 16 155/84 100 Intake and Output 08/05/23 08/06/23 08/06/23 22:59 06:59 14:59 Other: Weight 99.79 kg Results CBC & Chem 7: 08/07/23 04:44 08/07/23 04:44 Labs: Abnormal Lab Results - Last 24 Hours (Table) 08/06/23 08/06/23 Range/Units 12:12 12:12 WBC 12.9 H (3.8-10.6) k/uL Neutrophils # 10.2 H (1.3-7.7) k/uL Sodium 136 L (137-145) mmol/L Glucose 112 H (74-99) mg/dL Calcium 10.3 H (8.4-10.2) mg/dL Magnesium 1.5 L (1.6-2.3) mg/dL AST 57 H (14-36) U/L ALT 48 H (4-34) U/L Total Protein 8.5 H (6.3-8.2) g/dL Albumin 5.1 H (3.5-5.0) g/dL
[2023-08-06] MEDS ORDERED: tiZANidine 4 MG TAB PO PRN (14:47)
[2023-08-06] MEDS ORDERED: PROCHLORPERAZINE INJ 10 MG/2 ML VIAL IVP PRN (14:51)
[2023-08-06] MEDS ORDERED: ACETAMINOPHEN TAB 325 MG TAB PO PRN (14:52)
[2023-08-06] MEDS: MAGNESIUM SULFATE-D5W PMX 1 GM in DEXTROSE/WATER 1 100ML.BAG IVPB SCH ×3 (15:10→18:18)
[2023-08-06] MEDS: LACTATED RINGERS 1,000 ML IV SCH (15:10)
[2023-08-06] MEDS: PANTOPRAZOLE 40 MG/10 ML VIAL IVP SCH (21:13)
[2023-08-06] MEDS ORDERED: ALPRAZolam 0.25 MG TAB PO PRN (23:45)
--- NOTE | 2023-08-06 23:56 | P.EN ---
Cardiology Patient was seen in clinic but due to nausea, vomiting, chest pain and anxiety, patient was sent to the ER Patient presented to clinic with Chest pain and abnormal lexiscan nuclear stress test from Jun 2023 order by PCP due to ongiong chest pain, dypnea on exertion and fatigue ECG showed sinus rhythm with non specific symptoms, Chest pain mildly resolved from 8/10 to 6/10 in intensity with nitro sublingual x2 As patients chest pain was not getting better , has nausea and has difficulty to keep meds down, I referred her to ER due to unstable angina. I spoke to the ER physician Unstable angina Abnormal Lexiscan with fixed large perfusion defect anterior wall nausea and vomiting marijuana use obesity Plan Aspirin 81 atorvas 40 meto xl 25 mg plan for cardiac cath tomorrow no need for echo as recent echo showed ef 55% , no valve pathology.
[2023-08-07] MEDS: HEPARIN SODIUM,PORCINE 5,000 UNIT/ML 1 ML VIAL SQ SCH ×2 (00:55→07:18)
[2023-08-07] MEDS: LACTATED RINGERS 1,000 ML IV SCH (00:56)
[2023-08-07] MEDS ORDERED: SODIUM CHLORIDE 0.9% 1,000 ML in EMPTY BAG 1 BAG IV SCH (04:00)
[2023-08-07 05:12] LABS: HCT 38.2 % (34.0-46.0); MCH 30.5 pg (25.0-35.0); MCV 89.7 fL (80.0-100.0); Platelet Count 230 k/uL (150-450); RBC 4.26 m/uL (3.80-5.40); RDW 12.6 % (11.5-15.5); WBC 10.5 k/uL (3.8-10.6)
[2023-08-07] MEDS ORDERED: HEPARIN SODIUM,PORCINE (1 ML) 2,500 UNIT in SODIUM CHLORIDE 0.9% 250 ML IRRIGATION PRN (07:00)
[2023-08-07] MEDS ORDERED: HEPARIN SODIUM,PORCINE 10,000 UNIT in SODIUM CHLORIDE 0.9% 1,000 ML IRRIGATION PRN (07:00)
[2023-08-07 07:22] VITALS: TEMP 98.9
[2023-08-07] MEDS: PANTOPRAZOLE 40 MG/10 ML VIAL IVP SCH (08:17)
[2023-08-07] MEDS ORDERED: ASPIRIN 325 MG TAB PO SCH (09:00)
[2023-08-07] MEDS ORDERED: ASPIRIN 81 MG PO SCH (09:00)
[2023-08-07] MEDS ORDERED: FLUoxetine HCL 20 MG CAP PO SCH (09:00)
[2023-08-07 09:17] LABS: ALT 58 U/L (8-44); AST 45 U/L (13-35); Albumin 4.2 g/dL (3.8-4.9); Albumin/Globulin Ratio 1.83 Ratio (1.60-3.17); Alkaline Phosphatase 64 U/L (41-126); BUN/Creat Ratio 12.83 Ratio (12.00-20.00); Blood Urea Nitrogen 7.7 mg/dL (9.0-27.0); Calcium 9.2 mg/dL (8.7-10.3); Carbon Dioxide 24.7 mmol/L (21.6-31.8); Chloride 98 mmol/L (96-109); Chol/HDL Ratio 2.39 Ratio; Globulin 2.3 g/dL (1.6-3.3); Glucose 123 mg/dL (70-110); LDL Cholesterol,Calculated 75.9 mg/dL (0.0-131.0); Magnesium 2.1 mg/dL (1.5-2.4); Potassium 3.5 mmol/L (3.5-5.5); Sodium 135 mmol/L (135-145); Total Bilirubin 0.6 mg/dL (0.3-1.2); Total Protein 6.5 g/dL (6.2-8.2); VLDL Calculation 8.48 mg/dL (5.00-40.00)
[2023-08-07] MEDS ORDERED: ASPIRIN 81 MG ONE (09:17)
[2023-08-07] MEDS: ASPIRIN 81 MG PO STA (09:23)
[2023-08-07] MEDS: ALPRAZolam 0.5 MG TAB PO PRN ×2 (09:23→14:40)
--- NOTE | 2023-08-07 10:16 | P.CRDCN ---
History of Present Illness Consult date: 08/07/23 Consult reason: chest pain History of present illness: History of present illness: This is a 52-year-old female with past medical history of hypertension, obesity, marijuana use. We have been asked to evaluate the patient for chest pain. Patient had appointment yesterday with Dr. Houser due to an abnormal stress test result and patient was subsequently sent over to [facility] for admission. Patient is seen today in the emergency center waiting for bed on the observation unit. Patient states that she has had a pressure type chest pain for the past few months and gradually worsening. Her breathing is okay. She denies any fluttering or palpitations. She has had some lightheadedness dizziness when going up a flight of stairs which is new for. Magnesium was replaced in the emergency center. Patient quit smoking. No history of diabetes. EKG sinus rhythm Chest x-ray: No acute process CBC unremarkable. Initial WBC 12.9. INR 0.9. Sodium 136, potassium 4.3. Creatinine 0.57. Troponin negative x 3. AST 57, ALT 48, alkaline phosphatase 70. Magnesium 1.5. proBNP 1500. Lipase 93. Home cardiac medications: None Echocardiogram performed 05/27/2023 revealed normal LV size and systolic function. Mild mitral intracostal regurgitation. Lexiscan stress test performed on 07/08/2023 revealed fixed defect along the anterior wall suggestive large area of prior infarct. Polar maps indicate isi- infarct ischemia though this is not as well depicted on the SPECT images. Transit ischemic dilatation ratio is abnormally increased at 1.25. This can be seen in the setting of multivessel, global of inducible ischemia. Mildly decreased LVEF of 48%. Review Of Systems: At the time of my evaluation: Constitutional: No fever, no chills. No weakness, fatigue or lethargy. EENT: No headache. No dizziness. Lungs: No shortness of breath, cough, no sputum production. No wheezing. Cardiovascular: No chest pain, no lower extremity edema. No palpitations. No paroxysmal nocturnal dyspnea. No orthopnea. No lightheadedness or dizziness. No syncopal episodes. Abdominal: No abdominal pain. No nausea, vomiting. No diarrhea. No constipation. No bloody or tarry stools. Genitourinary: No dysuria.. No urinary retention. Musculoskeletal: No myalgias. No muscle weakness, no frequent falls. No back pain. No neck pain. Integumentary: No wounds. No rash. No unusual bruising. Neurologic: No aphasia. No facial droop. No change in mentation. No head injury. No headache. Physical examination: Gen: This is a 52-year-old female. She is resting in bed and appears to be comfortable and in no acute distress. VS: reviewed HEENT: Head is atraumatic, normocephalic. Pupils equal, round. Sclerae is anicteric. NECK: Supple. No JVD. . LUNGS: Clear to auscultation. No wheezes or rhonchi. No intercostal retractions. HEART: Regular rate and rhythm. No murmur. ABDOMEN: Soft No tenderness. EXTREMITIES: No pedal edema. No calf tenderness. NEUROLOGICAL: Patient is awake, alert and oriented x3. Assessment: Abnormal stress test Unstable angina Hypertension Obesity Plan: Patient is scheduled for cardiac catheterization today with Dr. Houser No need to repeat echocardiogram Further recommendations to follow based upon clinical course Thank you kindly for this consultation. Nurse practitioner note has been reviewed, I agree with documented findings and plan of care. Patient was seen and examined. Past Medical History Past Medical History: No Reported History Additional Past Medical History / Comment(s): Recent frequent vomiting, currently not as much. Lupus. History of Any Multi-Drug Resistant Organisms: None Reported Past Surgical History: Section, Orthopedic Surgery Additional Past Surgical History / Comment(s): Left knee surgery, laproscopy. Past Anesthesia/Blood Transfusion Reactions: No Reported Reaction Past Psychological History: Anxiety, Depression Smoking Status: Former smoker Past Alcohol Use History: None Reported Past Drug Use History: Marijuana - Past Family History Mother Family Medical History: Blood Disorder, Deep Vein Thrombosis (DVT) Additional Family Medical History / Comment(s): Factor 5. Sister(s) Family Medical History: Cancer, Deep Vein Thrombosis (DVT) Additional Family Medical History / Comment(s): 2 sister's had DVT's, 1 sister had throat cancer. Brother(s) Family Medical History: Deep Vein Thrombosis (DVT) Daughter(s) Family Medical History: Deep Vein Thrombosis (DVT), Pulmonary Embolus Additional Family Medical History / Comment(s): DVT and PE from control pill. Medications and Allergies Home Medications Medication Instructions Recorded Confirmed Type FLUoxetine HCL [PROzac] 40 mg PO DAILY 06/23/23 08/06/23 History Famotidine 40 mg PO DAILY 06/23/23 08/06/23 History Meloxicam [Mobic] 15 mg PO DAILY 06/23/23 08/06/23 History Vit No.179/Iron/Folic 1 tab PO DAILY 06/23/23 08/06/23 History [ Tablet] tiZANidine [Zanaflex] 4 mg PO HS PRN 06/23/23 08/06/23 History ALPRAZolam [Xanax] 0.5 mg PO DAILY PRN 08/06/23 08/06/23 History Allergies Allergy/AdvReac Type Severity Reaction Status Date / Time No Known Allergies Allergy Verified 08/06/23 13:51 Physical Exam Vitals: Vital Signs Temp Pulse Resp BP Pulse Ox 08/07/23 07:18 98.9 F 81 17 131/79 95 08/07/23 05:59 95 18 137/86 98 08/07/23 03:30 82 16 157/84 97 08/06/23 23:26 85 18 164/86 97 08/06/23 20:00 72 16 158/86 98 08/06/23 15:00 64 16 161/85 95 08/06/23 11:52 98.2 F 72 16 155/84 100 Results 08/07/23 04:44 08/07/23 04:44 Cardiac Enzymes 08/06/23 08/06/23 08/06/23 Range/Units 12:12 12:12 14:34 AST 57 H (14-36) U/L Troponin I <0.012 <0.012 (0.000-0.034) ng/mL 08/06/23 Range/Units 17:27 AST (14-36) U/L Troponin I <0.012 (0.000-0.034) ng/mL Coagulation 08/06/23 Range/Units 12:12 PT 10.4 (10.0-12.5) sec APTT 22.5 (22.0-30.0) sec CBC 08/06/23 08/07/23 Range/Units 12:12 04:44 WBC 12.9 H 10.5 (3.8-10.6) k/uL RBC 4.83 4.26 (3.80-5.40) m/uL Hgb 14.6 13.0 (11.4-16.0) gm/dL Hct 42.8 38.2 (34.0-46.0) % Plt Count 308 230 (150-450) k/uL Comprehensive Metabolic Panel 08/06/23 Range/Units 12:12 Sodium 136 L (137-145) mmol/L Potassium 4.3 (3.5-5.1) mmol/L Chloride 101 (98-107) mmol/L Carbon Dioxide 22 (22-30) mmol/L BUN 12 (7-17) mg/dL Creatinine 0.57 (0.52-1.04) mg/dL Glucose 112 H (74-99) mg/dL Calcium 10.3 H (8.4-10.2) mg/dL AST 57 H (14-36) U/L ALT 48 H (4-34) U/L Alkaline Phosphatase 70 (38-126) U/L Total Protein 8.5 H (6.3-8.2) g/dL Albumin 5.1 H (3.5-5.0) g/dL Current Medications Generic Name Dose Route Start Last Admin Trade Name Freq PRN Reason Stop Dose Admin Acetaminophen 650 mg 08/06/23 14:52 Acetaminophen Tab 325 Mg Tab PO Q6HR PRN Mild Pain or Fever > 100.5 Alprazolam 0.5 mg 08/06/23 14:47 Alprazolam 0.5 Mg Tab PO DAILY PRN Anxiety Alprazolam 0.25 mg 08/06/23 23:45 Alprazolam 0.25 Mg Tab PO Q6HR PRN Mild Anxiety Aspirin 81 mg 08/07/23 09:00 Aspirin 81 Mg PO DAILY [facility] Fluoxetine HCl 40 mg 08/07/23 09:00 Fluoxetine Hcl 20 Mg Cap PO DAILY [facility] Heparin Sodium (Porcine) 5,000 unit 08/07/23 00:00 08/07/23 07:18 Heparin Sodium,Porcine 5,000 Unit/Ml 1 Ml Vial SQ Not Given Q8HR RAMSES Lactated Ringer's 1,000 mls @ 100 mls/hr 08/06/23 15:00 08/07/23 00:56 Lactated Ringers IV 100 mls/hr .Q10H RAMSES Administration Heparin Sodium (Porcine) 10, 1,001 mls @ 999 mls/hr 08/07/23 07:00 000 unit/ Sodium Chloride IRRIGATION 08/07/23 23:00 ONCE PRN INTRA-OP Heparin Sodium (Porcine) 2,500 250.5 mls @ 250 mls/hr 08/07/23 07:00 unit/ Sodium Chloride IRRIGATION 08/07/23 23:00 ONCE PRN INTRA-OP Sodium Chloride 1,000 ml/ IV 1,000 mls @ 75 mls/hr 08/07/23 04:00 08/07/23 04:16 Solution IV 75 mls/hr .[id number] RAMSES Administration Nitroglycerin 0.4 mg 08/06/23 13:38 Nitroglycerin Sl Tabs 0.4 Mg Tab SUBLINGUAL Q5M PRN Chest Pain Pantoprazole Sodium 40 mg 08/06/23 21:00 08/06/23 21:13 Pantoprazole 40 Mg/10 Ml Vial IVP 40 mg BID RAMSES Administration Prochlorperazine Edisylate 10 mg 08/06/23 14:51 08/06/23 17:50 Prochlorperazine Inj 10 Mg/2 Ml Vial IVP 10 mg Q6H PRN Administration Nausea Tizanidine HCl 4 mg 08/06/23 14:47 08/07/23 03:25 Tizanidine 4 Mg Tab PO 4 mg HS PRN Administration Muscle Pain 08/07/23 04:44 08/06/23 12:12
[2023-08-07] MEDS ORDERED: SODIUM CHLORIDE 0.9% 1,000 ML IV ONE (10:36)
[2023-08-07] MEDS ORDERED: fentaNYL (PF) 50 MCG/1 ML VIAL IVP ONE (10:53)
[2023-08-07] MEDS ORDERED: LIDOCAINE 1% INJ 10MG/ML (30 ML VIAL-PF) SQ ONE ×2 (10:53→10:54)
[2023-08-07] MEDS ORDERED: MIDAZOLAM 2 MG/2 ML VIAL IVP ONE (10:53)
[2023-08-07] MEDS ORDERED: VERAPAMIL SYRINGE (5 MG/10 ML) INTRAARTER ONE (10:59)
[2023-08-07] MEDS ORDERED: HEPARIN SODIUM 1,000 UN/ML (10ML VL) IV ONE (10:59)
[2023-08-07] MEDS ORDERED: IOPAMIDOL-370 100ML BTL INJ ONE (11:14)
[2023-08-07] MEDS ORDERED: RX INFO: IV CONTRAST WAS GIVEN 1 EACH MISC MISCELLANE PRN (11:21)
--- NOTE | 2023-08-07 11:26 | P.CARDCATH ---
Date of Procedure: 08/07/23 Description of Procedure: DIAGNOSTIC CORONARY ANGIOGRAPHY and LEFT HEART CATH REPORT PROCEDURES PERFORMED: Left heart catheterization Selective coronary angiography Moderate conscious sedation 20 mins Right radial access INDICATION: Unstable angina and an abnormal myocardial perfusion imaging stress test 52-year-old with PMH of marijuana use, general anxiety disorder, obesity was dealing with substernal chest pressure for last few weeks. For this she had an outpatient Lexiscan nuclear stress test ordered by her primary care physician which showed moderate size fixed perfusion defect involving the anterior wall. For this patient was seen in clinic yesterday. During clinical evaluation, she had significant substernal chest pressure and felt significant anxiety. She also had associated nausea. For this she received sublingual nitroglycerin twice with minimal relief. Because of her ongoing substernal chest pain, anxiety and nausea, she was sent to the ER. In the heart catheterization was performed due to unstable angina symptoms CONSENT: I have discussed the risks, benefits and alternative therapies for the above-mentioned procedure, sedation/analgesia and necessary blood product administration (if indicated, as they pertain to this patient). The patient has indicated understanding and acceptance of the risks and procedures discussed. Conscious Sedation: Patient's ECG, heart rate, blood pressure, pulse oximetry was monitored throughout the duration of procedure under my direct supervision. 2 mg Versed and 50 mg Fentanyl were used for induction of moderate conscious sedation. Total duration of moderate concious sedation 20 minutes. PROCEDURE: After explaining the risks, benefits and alternatives of the above mentioned procedures in detail to the patient, informed consent was obtained. Patient was taken to the catheterization lab, prepped and draped in usual sterile fashion using universal precuations. Barbow and mark test were performed to confirm adequate perfusion to fingers. Ultrasound was used to identify the radial artery. 1% lidocaine was infiltrated over the right radial artery. A 6-Faroese sheath was placed and secured in the right radial artery using modified Seldinger technique. The sheath was flushed and 5 mg verapamil was administered intra-arterially. J tipped wire was advanced under fluoroscopic guidance. Once the wire tip reached aortic root 6000 units of IV heparin was given. Over the wire JL4 diagnostic catheter was advanced. Wire was removed, catheter was flushed and manipulated under fluoroscopy to selectively engaged the left coronary ostium. Left coronary angioplasty was performed in different angiographic projections. This catheter was exchanged for a JR4 diagnostic catheter over the wire. The catheter was flushed and manipulated to cross the aortic valve. LV pressures were obtained. Pullback was performed across aortic valve and catheter was manipulated to selectively engage the right coronary ostium under fluoroscopic guidance. Right coronary angiography was performed in different angiographic projections. Catheter was removed over the wire. Radial sheath was flushed. The right radial sheath was removed and a TR band was placed with excellent patent hemostasis was achieved. The patient tolerated the procedure well. Patient was transported back to the post catheterization holding area in stable condition. Angiographic images were reviewed in detail. HEMODYNAMICS: Aortic Pressure: 160/80 mmHg. LV pressure: 160/10 mmHg. LVEDP 13 mmHg. SELECTIVE CORONARY ARTERIOGRAPHY: LEFT MAIN: The left main is a large caliber vessel which bifurcates into the LAD and circumflex. Left main appears angiographically normal. LEFT ANTERIOR DESCENDING CORONARY ARTERY: LAD is a large caliber vessel which wraps around to the apex. It appears angiographically normal. LEFT CIRCUMFLEX CORONARY ARTERY: It is nondominant vessel. Left circumflex is a moderate caliber vessel. It appears angiographically normal. RIGHT CORONARY ARTERY: Dominant vessel. The right coronary artery is a large caliber vessel which gives PDA and PLV branch. It appears angiographically normal. IMPRESSION: Angiographically normal coronary arteries as described above. Normal left sided filling pressures PLAN: Aggressive risk factor modification per most recent ACC/AHA guidelines. 150 cc fluids for 3 hours Follow-up in the office in 1-2 weeks. Patient substernal chest pressure-like symptoms are most likely related to anxiety and possibly GI related because of associated nausea and vomiting. Chest pain is less likely cardiac. Patient is cleared to be discharged from cardiovascular standpoint with outpatient follow-up. Recommend primary care team to evaluate for noncardiac reasons for chest pain. Performing Physician Demond Houser MD
[2023-08-07] MEDS ORDERED: SODIUM CHLORIDE 0.9% 1,000 ML IV SCH (11:30)
--- NOTE | 2023-08-07 12:26 | P.DS ---
Providers Date of admission: 08/06/23 13:50 Expected date of discharge: 08/07/23 Attending physician: Royal Marti MD Consults: 08/06/23 13:38 Consult Physician Urgent Consulting Provider: Demond Houser Consult Reason/Comments: chest pain Do you want consulting provider notified?: Yes Primary care physician: [facility] Course: Discharge Diagnosis: Chest pain with abnormal Lexiscan stress test on 07/08/2023, acute coronary event ruled out. EKG completed showing normal sinus rhythm at 61 bpm. Chest x- ray negative for acute cardiopulmonary process. Troponins trended overnight all negative at less than 0.012 x 3 draws. Patient underwent a cardiac cath which was reported to be negative showing normal coronary arteries. Patient cleared from cardiac perspective for discharge. Medically patient stable for discharge at this time. Patient to follow-up outpatient with PCP, media production operator, and claims analyst. Intractable abdominal pain, nausea, and vomiting Cyclic vomiting is believed to be secondary to cannabinoid hyperemesis syndrome Hypomagnesemia, secondary to above. Resolved. Leukocytosis, believed to be reactive secondary to above. Resolved. Elevated liver enzymes, possibly secondary to above. Anxiety and depression. Continue daily medication regimen with Xanax 0.5 mg daily as needed for anxiety and fluoxetine 40 mg daily Hospital Course: Patient is a very pleasant 52-year-old female with a past medical history of lupus, gastroparesis with cyclic vomiting, anxiety, depression, and daily cannabinoid use. She presented to the emergency department with a chief complaint of intractable abdominal and chest pain accompanied by persistent na usea and vomiting x 3 days. Patient reported she went to her media production operator office earlier today and expressed these complaints and was sent to the emergency department to be admitted for a heart cath secondary to a failed Ivet scan stress test on 07/08/23 which showed some abnormalities. Patient denied having any fevers, chills, dizziness, lightheadedness, palpitations, shortness of breath, cough or congestion, or experiencing any changes with her urinary function or bowel movements. She does admit to daily marijuana use and states that is not the cause of her cyclic vomiting because she has used it every day for years. She underwent full evaluation in the emergency department. Vital signs upon arrival show blood pressure 155/84, heart rate 72, respiratory rate 16, temp 98.2 F, SpO2 100% on room air. Patient was medicated with morphine, Reglan, Ativan, and droperidol and given an IV fluid bolus of 2 L 0.9% normal saline. Her labs were completed. CBC revealing leukocytosis with WBC count of 12.9. Coagulation profile normal findings. BMP unremarkable. Blood glucose was 112. Calcium elevated at 10.3 and magnesium is low at 1.5. Liver profile showing elevated AST of 57 and ALT of 48. Troponin was negative at less than 0.012. EKG was completed showing normal sinus rhythm at 61 bpm. Chest x-ray was negative for acute cardiopulmonary process. Patient was admitted under our services with consultation to cardiology. Troponins trended overnight all negative at less than 0.012 x 3 draws. Nausea and vomiting was controlled with no further episodes after initial medication. Patient was evaluated by cardiology recommending cardiac cath. Patient underwent a cardiac cath this morning and it was reported to be negative, showing normal coronary arteries. Patient cleared from cardiac perspective for discharge. Had long discussion with patient at bedside that it is very likely that her recuuent episodes of cyclic vomiting is resulting from cannabinoid induced hyperemesis syndrome. Strongly recommended cessation of marijuana use. It may also be beneficial to follow-up with a claims analyst, Dr. Sullivan. Medically patient stable for discharge at this time. Patient to follow-up outpatient with PCP, media production operator, and claims analyst. Physical exam: Vital signs reviewed and stable. General: Nontoxic, no distress and appears stated age. Derm: Skin warm and dry, normal coloration for ethnicity. Head: Atraumatic, normocephalic and symmetric. Eyes: EOMs intact, no lid lag, and anicteric sclera Mouth: no lip lesions, mucus membranes moist Cardiovascular: regular rate and rhythm with normal S1S2, no murmur, positive posterior tibial pulses bilaterally, and cap refill < 2 seconds. Lungs: Respirations even, regular, and unlabored on room air. Lungs CTA bilaterally, no rhonchi, no rales, no wheezing, and no accessory muscle usage. Abdominal: soft, nontender to palpation, no guarding, no appreciable organomegaly Ext: ROM intact. No gross muscle atrophy, no edema, no contractures Neuro: Speech clear, face symmetrical and CN II-XII grossly intact with no noted focal neuro deficits Psych: Alert and oriented to person, place, time, and situation. Appropriate and pleasant affect. A total of 36 minutes of time were spent preparing this complex discharge summary. Pt was discharged on 08/07/2023 at 12:17 PM. Patient was seen independently by Nurse Practitioner. This document was prepared using [employer] dictation software. Please allow for errors in practical nursing teacher while rare they do occur. Percy Terrell NP rendered care for this patient independently, reviewed the findings and plan as documented in the note above. I did not physically speak with or examine the patient on this caro Patient Condition at Discharge: Stable Plan - Discharge Summary New Discharge Prescriptions: New Prochlorperazine [Compazine] 10 mg PO Q6H PRN #30 tab PRN Reason: Nausea And Vomiting Continue Meloxicam [Mobic] 15 mg PO DAILY ALPRAZolam [Xanax] 0.5 mg PO DAILY PRN PRN Reason: Anxiety tiZANidine [Zanaflex] 4 mg PO HS PRN PRN Reason: Muscle Pain FLUoxetine HCL [PROzac] 40 mg PO DAILY Vit No.179/Iron/Folic [ Tablet] 1 tab PO DAILY Famotidine 40 mg PO DAILY Discharge Medication List FLUoxetine HCL [PROzac] 40 mg PO DAILY 06/23/23 [History] Famotidine 40 mg PO DAILY 06/23/23 [History] Meloxicam [Mobic] 15 mg PO DAILY 06/23/23 [History] Vit No.179/Iron/Folic [ Tablet] 1 tab PO DAILY 06/23/23 [History] tiZANidine [Zanaflex] 4 mg PO HS PRN 06/23/23 [History] ALPRAZolam [Xanax] 0.5 mg PO DAILY PRN 08/06/23 [History] Prochlorperazine [Compazine] 10 mg PO Q6H PRN #30 tab 08/07/23 [Rx] Follow up Appointment(s)/Referral(s): Demond Houser MD [Medical Doctor] - 08/18/23 4:00 pm Chaparro Mccarty MD [Primary Care Provider] - 08/12/23 9:30 am (your appt @ [facility] is with Diandra) Kaylin Sullivan MD [STAFF PHYSICIAN] - 08/19/23 2:00 pm Patient Instructions/Handouts: Heart Catheterization (DC), Cyclic Vomiting Syndrome (DC) Activity/Diet/Wound Care/Special Instructions: Activity: As tolerated. Take breaks as needed. Diet: Heart healthy and carb consistent diet. Avoid salts, or foods with hidden salts such as canned or boxed foods and frozen dinners. Extra salt makes your heart work harder and traps the fluid in your body for longer. Special Instructions: Take all of your medications as directed and remember to keep all of your doctor's appointments and follow-up as needed. Also as we discussed, it is very likely that your cyclic vomiting is resulting from cannabinoid induced hyperemesis syndrome. Strongly recommend cessation of marijuana use. It may also be beneficial to follow-up with a claims analyst, Dr. Sullivan. Thank you for allowing us to participate in your care, it was truly a pleasure having you for our patient!!! FOR HEART CATH: No lifting/pushing/pulling greater than 5 lbs for 5 days with right arm. Remove dressing tomorrow (right wrist), about noon. No need to re-dress. You may shower tomorrow after dressing removal. No prolonged soaking of puncture site for 3 days (such as tub, hot tub, swim or dishes by hand).. You may drive Thursday. Discharge Disposition: HOME SELF-CARE
[2023-08-07] MEDS ORDERED: MELOXICAM 7.5 MG TAB PO SCH (13:30)
[2023-08-07 18:05] VITALS: BP 188/91; PULSE 70; RESP 16
== END 2023-08-07 15:00 | disposition home or self-care (01) | DRG 287 ==
LOC: EC 11:42 → 6NMEDSUR 13:50 → OBSVTOIN 13:50 → 6NMEDSUR 16:30
PROVIDERS: ADMIT Student in an Organized Health Care Education/Training Program; ATTEND Student in an Organized Health Care Education/Training Program
PROC: 4A023N7 Measurement of Cardiac Sampling and Pressure, Left Heart, Percutaneous Approach (ICD-10-PCS; principal; 2023-08-06)
PROC: B2111ZZ Fluoroscopy of Multiple Coronary Arteries using Low Osmolar Contrast (ICD-10-PCS; principal; 2023-08-06)
DX: R07.9 Chest pain, unspecified (principal); R11.2 Nausea with vomiting, unspecified; K76.0 Fatty (change of) liver, not elsewhere classified; E83.42 Hypomagnesemia; F41.9 Anxiety disorder, unspecified; F32.A Depression, unspecified; I10 Essential (primary) hypertension; Z87.891 Personal history of nicotine dependence; R11.10 Vomiting, unspecified; E66.9 Obesity, unspecified; Z68.37 Body mass index [BMI] 37.0-37.9, adult; R94.39 Abnormal result of other cardiovascular function study
CPT/HCPCS: 36415; 71046; 76937; 80053; 80061; 83690; 83735; 83880; 84484; 85025; 85027; 85610; 85730; 93005; 93458; 96361; 96365; 96366; 96375; 99285